=== PATIENT | female | born 1955 | race Asian ===

== ENCOUNTER 2021-05-06 01:39 | Emergency (ER) | payer MEDICARE, BC ==
[~2021-05-06] VITALS: Ht 157.5 cm; Wt 56.7 kg
[~2021-05-06 01:39] MED LIST: CALCIUM 500+VI1 EACH PO; MAGN400C PO; MULT-1045 PO
--- NOTE | 2021-05-06 01:55 | NUR ---
Patient walked into ER c/o intermittent palpitation that started 4 days ago. Patient states palpitation always starts in the morning and woke her up today.
--- NOTE | 2021-05-06 01:59 | NUR ---
Dr. Hull on bedside for MSE.
[2021-05-06] MEDS ORDERED: CLONIDINE HCL 0.1 MG TABLET PO ONE (02:30)
[2021-05-06 02:36] LABS: HEMATOCRIT 37.4 % (31.2-41.9); MEAN CORPUSCULAR HEMOGLOBIN 29.9 uug (24.7-32.8); MEAN CORPUSCULAR VOLUME 89.2 fL (75.5-95.3); PLATELET COUNT (AUTO) 272 K/uL (179-408)
[2021-05-06] MEDS ORDERED: CLONIDINE HCL 0.1 MG TABLET ONE (02:42)
[2021-05-06 02:50] LABS: CREATININE 0.7 mg/dL (0.6-1.3)
[2021-05-06 02:55] LABS: BILIRUBIN,DIRECT 0.1 mg/dL (0.0-0.2); BILIRUBIN,TOTAL 0.4 mg/dL (0.2-1.0); TOTAL PROTEIN, SERUM 7.8 g/dL (6.4-8.2)
[2021-05-06 03:24] LABS: *BILIRUBIN,URIN NEGATIVE (NEGATIVE); *COLOR,URINE YELLOW (YELLOW); *KETONES,URINE NEGATIVE (NEGATIVE); *UROBILINOGEN,URINE 0.2 E.U./dl (NORMAL); LEUKOCYTE ESTERASE ,URINE TRACE (NEGATIVE); NITRITE, URINE NEGATIVE (NEGATIVE); UGLUCOSE NEGATIVE (NEGATIVE)
[2021-05-06] MEDS ORDERED: LISINOPRIL 10 MG TABLET PO ONE (03:30)
[2021-05-06] MEDS ORDERED: LISINOPRIL 10 MG TABLET ONE (03:31)
[2021-05-06 03:37] LABS: *BLOOD, URINE TRACE (NEGATIVE); *CLARITY,URINE HAZY (CLEAR)
[2021-05-06 03:38] LABS: BACTERIA,URINE FEW /HPF (NONE SEEN); RBC,URINE 0-3 /HPF (0-3); SQUAMOUS EPITHELIAL CELL,UR FEW /HPF (NONE SEEN)
[2021-05-06 03:39] LABS: URINE AMORPHOUS PHOSPHATES MODERATE /HPF
[2021-05-06] MEDS ORDERED: LISI20TA PO (03:48)
--- NOTE | 2021-05-06 04:10 | NUR ---
Patient discharged to home in stable condition. Written and verbal after care instructions given. Patient verbalizes understanding of instructions. Stressed follow up or return to ER for worsening s/s. Patient ambulated fr the ER with steady gait. All belongings with patient.
[2021-05-06 04:13] VITALS: BP 139/98
== END 2021-05-06 04:10 | disposition home or self-care (01) ==
LOC: ER 01:42
DX: I10 Essential (primary) hypertension (principal); I45.10 Unspecified right bundle-branch block; H35.039 Hypertensive retinopathy, unspecified eye; Z88.2 Allergy status to sulfonamides
CPT/HCPCS: 36415; 71045; 83735; 85025; 87086; 93005; A4663

== ENCOUNTER 2021-12-27 14:55 | Emergency (ER) | payer MEDICARE, BC ==
[~2021-12-27] VITALS: Ht 157.5 cm; Wt 56.7 kg
[~2021-12-27 14:55] MED LIST changes: +LISI20TA PO
--- NOTE | 2021-12-27 16:20 | NUR ---
Short staffed, 1 brake lining driller only for multiple patients. Dr Gleason at the bedside for MSE.
[2021-12-27 16:58] LABS: HEMATOCRIT 43.6 % (31.2-41.9); MEAN CORPUSCULAR VOLUME 92.4 fL (75.5-95.3); PLATELET COUNT (AUTO) 270 K/uL (179-408)
[2021-12-27 17:04] LABS: CARBON DIOXIDE 28 mmol/L (21-32); CHLORIDE 97 mmol/L (98-107); CREATININE 0.6 mg/dL (0.6-1.3); GLUCOSE 102 mg/dL (74-106); POTASSIUM 3.6 mmol/L (3.5-5.1); UREA NITROGEN, BLOOD 14 mg/dL (7-18)
[2021-12-27 17:16] LABS: ALANINE AMINOTRANSFERASE 20 U/L (14-59); ALKALINE PHOSPHATASE 93 U/L (50-136); ASPARTATE AMINOTRANSFERASE 12 U/L (15-37); BILIRUBIN,DIRECT < 0.1 mg/dL (0.0-0.2); BILIRUBIN,TOTAL 0.3 mg/dL (0.2-1.0); TOTAL PROTEIN, SERUM 8.5 g/dL (6.4-8.2)
[2021-12-27] MEDS ORDERED: GUAI1TBM19 PO (18:58)
[2021-12-27] MEDS ORDERED: ALBU8.5H8 INH (18:58)
[2021-12-27 19:10] VITALS: BP 166/112
--- NOTE | 2021-12-27 19:10 | NUR ---
Patient discharged to home in stable condition. Written and verbal after care instructions given. Patient verbalizes understanding of instructions. Stressed follow up or return to ER for worsening s/s.
== END 2021-12-27 19:11 | disposition home or self-care (01) ==
LOC: ER 14:59
DX: J20.9 Acute bronchitis, unspecified (principal); Z20.822 Contact with and (suspected) exposure to COVID-19; I10 Essential (primary) hypertension; I77.819 Aortic ectasia, unspecified site; Z88.2 Allergy status to sulfonamides
CPT/HCPCS: 36415; 71045; 84484; 85025; 93005; A4663

== ENCOUNTER 2024-02-09 19:05 | Emergency (ER) | payer MEDICARE, BC ==
[~2024-02-09] VITALS: Ht 157.5 cm; Wt 50.8 kg
[~2024-02-09 19:05] MED LIST changes: +ALBU8.5H8 INH; +GUAI1TBM19 PO
[2024-02-09 20:28] LABS: BASOPHILS # (AUTO) 0.2 K/UL (0.0-0.2); BASOPHILS % (AUTO) 3.1 % (0.0-2.0); EOSINOPHILS # (AUTO) 0.1 K/uL (0.0-0.7); EOSINOPHILS % (AUTO) 1.6 % (0.0-7.0); HEMATOCRIT 39.2 % (31.2-41.9); HEMOGLOBIN 13.2 g/dL (10.9-14.3); LYMPHOCYTES # (AUTO) 1.8 K/uL (0.8-4.8); LYMPHOCYTES % (AUTO) 27.7 % (20.5-51.5); MEAN CORPUSCULAR HEMOGLOBIN 31.2 uug (24.7-32.8); MEAN CORPUSCULAR HGB CONC 34 g/dL (32.3-35.6); MEAN CORPUSCULAR VOLUME 92.9 fL (75.5-95.3); MONOCYTES # (AUTO) 0.2 K/uL (0.1-1.30); MONOCYTES % (AUTO) 3.5 % (0.0-11.0); NEUTROPHILS # (AUTO) 4.2 K/uL (1.8-8.9); NEUTROPHILS % (AUTO) 64.1 % (38.5-71.5); PLATELET COUNT (AUTO) 277 K/uL (179-408); RED BLOOD CELL COUNT(AUTO) 4.22 MIL/uL (3.63-4.92); RED CELL DISTRIBUTION WIDTH 13.6 % (12.3-17.7); WHITE BLOOD COUNT (AUTO) 6.6 K/uL (3.8-11.8)
[2024-02-09 20:34] LABS: DIFFERENTIAL COMMENT 1
[2024-02-09 20:38] LABS: CALCIUM 10.2 mg/dL (8.5-10.1); CREATININE 0.6 mg/dL (0.6-1.3); POTASSIUM 3.7 mmol/L (3.5-5.1)
[2024-02-09 20:50] LABS: ALBUMIN 3.7 g/dL (3.4-5.0); BILIRUBIN,TOTAL 0.3 mg/dL (0.2-1.0); TOTAL PROTEIN, SERUM 8.1 g/dL (6.4-8.2)
[2024-02-09 21:41] VITALS: BP 132/99; TEMP 98.6; O2SAT 100
== END 2024-02-09 21:42 | disposition home or self-care (01) ==
LOC: ER 19:05
DX: R07.89 Other chest pain (principal); R06.00 Dyspnea, unspecified; Z79.899 Other long term (current) drug therapy; Z88.2 Allergy status to sulfonamides
CPT/HCPCS: 36415; 71045; 84443; 84484; 85025; A4606; A4663